=== PATIENT | male | born 1955 | race African-American/Black ===

== ENCOUNTER 2020-07-19 11:48 | Inpatient (IN) | payer OTHER, MEDICAID ==
[~2020-07-19] VITALS: Ht 180.3 cm; Wt 78.0 kg
[2020-07-19 12:12] VITALS: BP_SYST 109
[2020-07-19] MEDS ORDERED: NACL 0.9% 1,000 ML IV ONE (12:30)
[2020-07-19 13:06] LABS: EOSINOPHILS # (AUTO) 0.1 K/uL (0.0-0.4); HEMOGLOBIN 9.1 g/dL (14.0-18.0); MEAN CORPUSCULAR HEMOGLOBIN 30 pg (27-31); RED BLOOD CELL COUNT(AUTO) 3.05 MIL/uL (4.2-6.2)
[2020-07-19 13:10] LABS: CALCIUM 7.4 mg/dL (8.4-11.0); CREATININE 1.04 mg/dL (0.55-1.30); POTASSIUM 4.5 mmol/L (3.5-5.1)
[2020-07-19 13:11] LABS: HEMATOCRIT 28.3 % (36-54); MEAN CORPUSCULAR VOLUME 93 fL (79.0-98.0)
[2020-07-19 13:12] LABS: BASOPHILS % (AUTO) 0.7 % (0.0-2.0); EOSINOPHILS % (AUTO) 4.4 % (0.0-4.0); LYMPHOCYTES # (AUTO) 0.8 K/uL (1.0-5.5); LYMPHOCYTES % (AUTO) 25.7 % (20.5-51.5); MEAN CORPUSCULAR HGB CONC 32 % (32-36); MONOCYTES # (AUTO) 0.7 K/uL (0.0-1.0); MONOCYTES % (AUTO) 22.6 % (1.7-9.3); NEUTROPHILS # (AUTO) 1.4 K/uL (1.8-7.7); NEUTROPHILS % (AUTO) 46.6 % (40.0-70.0); RED CELL DISTRIBUTION WIDTH 16.7 % (9.0-15.0)
[2020-07-19 13:15] LABS: ALBUMIN 1.8 g/dL (3.4-4.8); TOTAL BILIRUBIN 0.7 mg/dL (0.0-1.0)
[2020-07-19 13:28] LABS: PLATELET COUNT (AUTO) 92 K/uL (130-430)
[2020-07-19 19:53] VITALS: BP_SYST 136
[2020-07-19] MEDS: ACETAMINOPHEN 325 MG TABLET PO PRN (22:22)
[2020-07-20 00:11] VITALS: BP_SYST 123
[2020-07-20] MEDS: ACETAMINOPHEN 325 MG TABLET PO PRN (05:18)
[2020-07-20 08:00] VITALS: BP_SYST 105
[2020-07-20] MEDS ORDERED: PIPERACILLIN/TAZO 3.375/DEX-IS 50 ML IV ONE (11:00)
[2020-07-20 11:09] LABS: TOTAL IRON BIND. CAPACITY 209 ug/dL (250-450)
[2020-07-20] MEDS: VANCOMYCIN HCL 1,000 MG in NS 250 ML IV SCH ×2 (12:35→23:44)
[2020-07-20 12:38] VITALS: BP_SYST 96
[2020-07-20] MEDS: BALSAM PERU/CASTOR OIL 60 GM OINT...G. TP SCH (13:00)
[2020-07-20 15:56] VITALS: BP_SYST 113
[2020-07-20] MEDS: PIPERACILLIN/TAZO 3.375/DEX-IS 50 ML IV SCH ×2 (18:53→23:02)
[2020-07-20 20:00] VITALS: BP_SYST 103
[2020-07-21 00:43] VITALS: BP_SYST 95
[2020-07-21] MEDS: PIPERACILLIN/TAZO 3.375/DEX-IS 50 ML IV SCH ×3 (05:04→17:21)
[2020-07-21 06:06] LABS: FOLATE (FOLIC ACID) 8.1 ng/mL (>3.0)
[2020-07-21 07:19] LABS: BASOPHILS % (AUTO) 0.4 % (0.0-2.0); EOSINOPHILS # (AUTO) 0.2 K/uL (0.0-0.4); EOSINOPHILS % (AUTO) 5.7 % (0.0-4.0); HEMATOCRIT 25.2 % (36-54); HEMOGLOBIN 8.4 g/dL (14.0-18.0); LYMPHOCYTES # (AUTO) 0.9 K/uL (1.0-5.5); LYMPHOCYTES % (AUTO) 26.9 % (20.5-51.5); MEAN CORPUSCULAR HEMOGLOBIN 30 pg (27-31); MEAN CORPUSCULAR HGB CONC 33 % (32-36); MEAN CORPUSCULAR VOLUME 91 fL (79.0-98.0); MONOCYTES # (AUTO) 0.5 K/uL (0.0-1.0); MONOCYTES % (AUTO) 14.7 % (1.7-9.3); NEUTROPHILS # (AUTO) 1.8 K/uL (1.8-7.7); NEUTROPHILS % (AUTO) 52.3 % (40.0-70.0); PLATELET COUNT (AUTO) 115 K/uL (130-430); RED BLOOD CELL COUNT(AUTO) 2.77 MIL/uL (4.2-6.2); RED CELL DISTRIBUTION WIDTH 16.7 % (9.0-15.0); WHITE BLOOD COUNT (AUTO) 3.4 K/uL (4.8-10.8)
[2020-07-21 07:29] LABS: ALBUMIN 1.5 g/dL (3.4-4.8); CALCIUM 7.1 mg/dL (8.4-11.0); CREATININE 1.4 mg/dL (0.55-1.30); POTASSIUM 3.9 mmol/L (3.5-5.1); TOTAL BILIRUBIN 0.7 mg/dL (0.0-1.0)
[2020-07-21 08:00] VITALS: BP_SYST 100
[2020-07-21] MEDS: BALSAM PERU/CASTOR OIL 60 GM OINT...G. TP SCH (08:34)
[2020-07-21 10:27] LABS: CHOLESTEROL 64 mg/dL (<200); HDL CHOLESTEROL 27 mg/dL (>45); LDL CHOLESTEROL 27 mg/dL (<100); TRIGLYCERIDES 34 mg/dL (30-150)
[2020-07-21 12:29] VITALS: BP_SYST 99
[2020-07-21] MEDS: VANCOMYCIN HCL 1,000 MG in NS 250 ML IV SCH (13:39)
[2020-07-21 16:04] VITALS: BP_SYST 113
[2020-07-21] MEDS: ACETAMINOPHEN 325 MG TABLET PO PRN (17:19)
[2020-07-22 00:01] VITALS: BP_SYST 98
[2020-07-22] MEDS: PIPERACILLIN/TAZO 3.375/DEX-IS 50 ML IV SCH ×5 (03:29→23:25)
[2020-07-22] MEDS: VANCOMYCIN HCL 1,000 MG in NS 250 ML IV SCH (04:24)
[2020-07-22 06:31] LABS: BASOPHILS % (AUTO) 0.4 % (0.0-2.0); EOSINOPHILS # (AUTO) 0.2 K/uL (0.0-0.4); EOSINOPHILS % (AUTO) 7.1 % (0.0-4.0); HEMATOCRIT 25.8 % (36-54); HEMOGLOBIN 8.5 g/dL (14.0-18.0); LYMPHOCYTES # (AUTO) 0.9 K/uL (1.0-5.5); MEAN CORPUSCULAR HEMOGLOBIN 30 pg (27-31); MEAN CORPUSCULAR HGB CONC 33 % (32-36); MEAN CORPUSCULAR VOLUME 91 fL (79.0-98.0); MONOCYTES # (AUTO) 0.5 K/uL (0.0-1.0); MONOCYTES % (AUTO) 17.5 % (1.7-9.3); NEUTROPHILS # (AUTO) 1.3 K/uL (1.8-7.7); PLATELET COUNT (AUTO) 116 K/uL (130-430); RED BLOOD CELL COUNT(AUTO) 2.82 MIL/uL (4.2-6.2); RED CELL DISTRIBUTION WIDTH 16.7 % (9.0-15.0); WHITE BLOOD COUNT (AUTO) 2.9 K/uL (4.8-10.8)
[2020-07-22 06:57] LABS: ALBUMIN 1.7 g/dL (3.4-4.8); CALCIUM 7.2 mg/dL (8.4-11.0); CREATININE 1.26 mg/dL (0.55-1.30); POTASSIUM 3.9 mmol/L (3.5-5.1); TOTAL BILIRUBIN 0.7 mg/dL (0.0-1.0)
[2020-07-22 08:00] VITALS: BP_SYST 132
[2020-07-22 08:11] LABS: HEPATITIS A AB, IgM Negative (Negative); HEPATITIS B CORE AB, IgM Negative (Negative); HEPATITIS B SURFACE AG Negative (Negative)
[2020-07-22] MEDS: BALSAM PERU/CASTOR OIL 60 GM OINT...G. TP SCH (08:37)
[2020-07-22] MEDS: HYDROcodone/ACETAMIN 5-325 MG TAB (NORCO/ VICODIN) PO PRN ×2 (11:18→18:20)
[2020-07-22 12:20] VITALS: BP_SYST 111
[2020-07-22 16:49] VITALS: BP_SYST 107
[2020-07-22 20:00] VITALS: BP_SYST 102
[2020-07-23] VITALS: BP_SYST 112
[2020-07-23] MEDS: VANCOMYCIN HCL 750 MG in NS 250 ML IV SCH ×2 (00:03→13:00)
[2020-07-23] MEDS: NACL 0.9% 1,000 ML IV SCH ×2 (05:09→21:15)
[2020-07-23] MEDS: PIPERACILLIN/TAZO 3.375/DEX-IS 50 ML IV SCH ×3 (05:09→17:31)
[2020-07-23 08:00] VITALS: BP_SYST 109
[2020-07-23] MEDS ORDERED: ASCORBIC ACID 500 MG TABLET PO SCH (09:00)
[2020-07-23] MEDS ORDERED: MULTIVITS,CA,MINERALS/IRON/FA 1 TABLET PO SCH (09:00)
[2020-07-23] MEDS ORDERED: FOLIC ACID 1 MG TABLET PO SCH (09:00)
[2020-07-23] MEDS: BALSAM PERU/CASTOR OIL 60 GM OINT...G. TP SCH (09:52)
[2020-07-23] MEDS: HYDROcodone/ACETAMIN 5-325 MG TAB (NORCO/ VICODIN) PO PRN (11:51)
[2020-07-23 12:11] VITALS: BP_SYST 100; BP_SYST 93
[2020-07-23 16:47] VITALS: BP_SYST 106
[2020-07-23 19:00] VITALS: BP_SYST 110
[2020-07-23 20:00] VITALS: BP_SYST 110
[2020-07-24] MEDS: VANCOMYCIN HCL 750 MG in NS 250 ML IV SCH (00:08)
[2020-07-24] MEDS: PIPERACILLIN/TAZO 3.375/DEX-IS 50 ML IV SCH ×2 (00:08→05:15)
[2020-07-24 00:09] VITALS: BP_SYST 96
[2020-07-24] MEDS ORDERED: VANC1PIG (07:32)
[2020-07-24] MEDS ORDERED: HYDR-3917 PO (07:33)
[2020-07-24] MEDS ORDERED: BALS60OI4 (07:33)
[2020-07-24] MEDS ORDERED: PIPE3.379 IV (07:35)
[2020-07-24 07:40] VITALS: BP_SYST 111
[2020-07-24 08:00] VITALS: BP_SYST 125
[2020-07-24] MEDS: BALSAM PERU/CASTOR OIL 60 GM OINT...G. TP SCH (08:42)
== END 2020-07-24 11:30 | DRG 602 ==
LOC: SED 11:48 → STU 17:15 → SMU 07-20 11:37
PROVIDERS: ADMIT Internal Medicine Hospice and Palliative Medicine; ATTEND Internal Medicine Hospice and Palliative Medicine
DX: L03.116 Cellulitis of left lower limb (principal); E43 Unspecified severe protein-calorie malnutrition; D61.818 Other pancytopenia; M86.8X7 Other osteomyelitis, ankle and foot; D64.9 Anemia, unspecified; D69.6 Thrombocytopenia, unspecified; D72.819 Decreased white blood cell count, unspecified; L03.115 Cellulitis of right lower limb; S91.301A Unspecified open wound, right foot, initial encounter; K80.20 Calculus of gallbladder without cholecystitis without obstruction; F10.10 Alcohol abuse, uncomplicated; Y90.9 Presence of alcohol in blood, level not specified; K70.30 Alcoholic cirrhosis of liver without ascites; X58.XXXA Exposure to other specified factors, initial encounter; Z74.01 Bed confinement status; Z79.891 Long term (current) use of opiate analgesic; Z79.2 Long term (current) use of antibiotics; Z56.0 Unemployment, unspecified; Z68.24 Body mass index [BMI] 24.0-24.9, adult; Y93.89 Activity, other specified; Y92.89 Other specified places as the place of occurrence of the external cause; Y99.8 Other external cause status
CPT/HCPCS: 36415; 71045; 73720; 76700-TC; 80053; 80061; 80074; 80202-TC; 82607; 82746; 83010; 83036; 83540-TC; 83550-TC; 83615-TC; 84443-TC; 85025; 85044-TC; 86592; 87536; 96360; 99285; G0378; J2543; J3370; J7030; J7050

== ENCOUNTER 2021-02-03 12:15 | Emergency (ER) | payer OTHER, MEDICAID ==
[~2021-02-03] VITALS: Ht 180.3 cm; Wt 83.9 kg
[2021-02-03 12:15] VITALS: BP_SYST 116
[~2021-02-03 12:15] MED LIST: BALS60OI4; HYDR-3917 PO; PIPE3.379 IV; VANC1PIG
[2021-02-03] MEDS ORDERED: OXYCODONE/ACETAMINOPHEN *10*mg/325 mg TABLET PO ONE (12:45)
[2021-02-03] MEDS ORDERED: OXYCODONE/ACETAMINOPHEN *10*mg/325 mg TABLET ONE (12:48)
[2021-02-03 13:05] LABS: BASOPHILS # (AUTO) 0.1 K/uL (0.0-0.2); BASOPHILS % (AUTO) 1.6 % (0.0-2.0); EOSINOPHILS # (AUTO) 0.1 K/uL (0.0-0.4); EOSINOPHILS % (AUTO) 2.3 % (0.0-4.0); HEMATOCRIT 26.8 % (36-54); HEMOGLOBIN 8.8 g/dL (14.0-18.0); LYMPHOCYTES # (AUTO) 0.8 K/uL (1.0-5.5); LYMPHOCYTES % (AUTO) 25.7 % (20.5-51.5); MEAN CORPUSCULAR HEMOGLOBIN 29 pg (27-31); MEAN CORPUSCULAR HGB CONC 33 % (32-36); MEAN CORPUSCULAR VOLUME 88 fL (79.0-98.0); MONOCYTES # (AUTO) 0.7 K/uL (0.0-1.0); MONOCYTES % (AUTO) 22.1 % (1.7-9.3); NEUTROPHILS # (AUTO) 1.5 K/uL (1.8-7.7); NEUTROPHILS % (AUTO) 48.3 % (40.0-70.0); PLATELET COUNT (AUTO) 142 K/uL (130-430); RED BLOOD CELL COUNT(AUTO) 3.04 MIL/uL (4.2-6.2); RED CELL DISTRIBUTION WIDTH 15.1 % (9.0-15.0); WHITE BLOOD COUNT (AUTO) 3.1 K/uL (4.8-10.8)
[2021-02-03 13:17] LABS: CREATININE 1.17 mg/dL (0.55-1.30); POTASSIUM 4.2 mmol/L (3.5-5.1)
[2021-02-03 13:19] LABS: INR 1.4 (0.80-1.20); PROTHROMBIN TIME 14.1 SECS (9.5-12.5)
[2021-02-03] MEDS ORDERED: HYDR-3919 PO (15:45)
[2021-02-03 16:12] VITALS: BP_SYST 110
== END 2021-02-03 16:11 | disposition home or self-care (01) ==
LOC: SED 12:15
DX: R22.1 Localized swelling, mass and lump, neck (principal); F12.90 Cannabis use, unspecified, uncomplicated; Z79.899 Other long term (current) drug therapy
CPT/HCPCS: 36415; 70491; 76376; 80048; 85025; 85610; 99285; Q9967